=== PATIENT | male | born 1995 | race African-American/Black ===

== ENCOUNTER 2019-12-16 17:14 | Emergency (ER) | payer MEDICAID | END 2019-12-16 18:20 | disposition left against medical advice (07) | LOC: ER 17:14 | DX: M79.609 Pain in unspecified limb (principal); Z53.21 Procedure and treatment not carried out due to patient leaving prior to being seen by health care provider ==

== ENCOUNTER 2019-12-17 20:32 | Emergency (ER) | payer MEDICAID ==
[~2019-12-17] VITALS: Ht 172.7 cm; Wt 58.0 kg
[2019-12-17 22:37] VITALS: BP 119/70
== END 2019-12-17 23:01 | disposition home or self-care (01) ==
LOC: ER 20:32
DX: S93.402A Sprain of unspecified ligament of left ankle, initial encounter (principal); X50.1XXA Overexertion from prolonged static or awkward postures, initial encounter; Y93.51 Activity, roller skating (inline) and skateboarding; Y92.9 Unspecified place or not applicable; Z98.890 Other specified postprocedural states
CPT/HCPCS: 99282